=== PATIENT | female | born 1945 | race Asian ===

== ENCOUNTER 2017-01-17 22:08 | Emergency (ER) | payer MEDICARE, OTHER ==
[~2017-01-17] VITALS: Ht 160 cm; Wt 80.9 kg
[2017-01-17] MEDS ORDERED: ATOR10TA84 PO (22:23)
[2017-01-17] MEDS ORDERED: TELM40 PO (22:23)
[2017-01-17] MEDS ORDERED: CARV6 PO (22:23)
[2017-01-17] MEDS ORDERED: AMLO-511 PO (22:23)
[2017-01-17] MEDS ORDERED: OxyCODONE HCL/ACETAMINOPHEN 5-325 MG TABLET PO ONE (23:00)
[2017-01-17 23:10] LABS: BASOPHILS # (AUTO) 0.07 K/uL (0.00-0.20); BASOPHILS % (AUTO) 0.7 % (0.0-2.0); EOSINOPHILS # (AUTO) 0.29 K/uL (0.00-0.70); EOSINOPHILS % (AUTO) 2.98 % (1.0-6.0); HEMATOCRIT 33.6 % (36-46); HEMOGLOBIN 10.4 g/dL (12.0-16.0); LYMPHOCYTES % (AUTO) 20.1 % (22.0-44.0); MEAN CORPUSCULAR HEMOGLOBIN 20.4 pg (26.0-34.0); MEAN CORPUSCULAR VOLUME 66 fL (80-100); MONOCYTES # (AUTO) 0.8 K/uL (0.1-1.0); MONOCYTES % (AUTO) 8.7 % (2.0-9.0); NEUTROPHILS # (AUTO) 6.5 K/uL (1.8-7.7); NEUTROPHILS % (AUTO) 67.5 % (40.0-70.0); PLATELET COUNT (AUTO) 139 K/uL (150-450); RED CELL DISTRIBUTION WIDTH 17.3 % (11.5-14.5); WHITE BLOOD COUNT (AUTO) 9.7 K/uL (4.5-11.0)
[2017-01-17 23:16] LABS: CALCIUM, TOTAL 9.2 mg/dL (8.8-10.5); CREATININE 1.08 mg/dL (0.60-1.30); POTASSIUM 3.8 mmol/L (3.5-5.1)
[2017-01-17 23:22] LABS: ALBUMIN 3.9 g/dL (3.4-5.0); BILIRUBIN,TOTAL 0.4 mg/dL (0.1-1.0); TOTAL PROTEIN, SERUM 8.5 g/dL (6.4-8.2)
[2017-01-17 23:45] LABS: RBC MORPHOLOGY COMMENT ABNORMAL RBC MORPH
[2017-01-18 01:06] VITALS: BP 121/55
[2017-01-18] MEDS ORDERED: ONDANSETRON HCL 4 MG TABLET PO ONE (01:30)
[2017-01-18 02:38] LABS: GLUCOSE,POINT OF CARE 169 MG/DL (70-110)
== END 2017-01-18 01:43 | disposition home or self-care (01) ==
LOC: EMS 22:11
DX: M17.12 Unilateral primary osteoarthritis, left knee (principal); I10 Essential (primary) hypertension; E78.00 Pure hypercholesterolemia, unspecified; Z88.0 Allergy status to penicillin
CPT/HCPCS: 36415; 73562; 80053; 82962; 85025; 99285; Q0162